=== PATIENT | female | born 1960 | race Caucasian/White ===

== ENCOUNTER 2016-11-28 07:25 | Emergency (ER) | payer BC | END 2016-11-28 08:33 | disposition home or self-care (01) | LOC: ER 07:25 | DX: S60.571A Other superficial bite of hand of right hand, initial encounter (principal); Z23 Encounter for immunization; Z88.5 Allergy status to narcotic agent; W54.0XXA Bitten by dog, initial encounter; Y92.009 Unspecified place in unspecified non-institutional (private) residence as the place of occurrence of the external cause | CPT/HCPCS: 90471 ==